=== PATIENT | male | born 1980 | race African-American/Black ===

== ENCOUNTER → 2024-04-07 | Emergency (ER) | payer OTHER ==
[~2024-04-07] VITALS: Ht 167.6 cm; Wt 83.9 kg
[~2024-04-07] MED LIST: BISOPROLOL FUMAR5 MG PO; NORVASC10 MG PO
== END | disposition left against medical advice (07) ==
LOC: ER 20:41
DX: Z53.21 Procedure and treatment not carried out due to patient leaving prior to being seen by health care provider (principal)